=== PATIENT | male | born 1975 | race Caucasian/White ===

== ENCOUNTER 2018-12-19 10:25 | Emergency (ER) | payer OTHER ==
[~2018-12-19] VITALS: Ht 175.3 cm; Wt 93.6 kg
[~2018-12-19 10:25] MED LIST: ALBU0.0912 INH; HYDR-5122 PO; [UNRECOGNIZED DRUG - CODE] PO
[2018-12-19 11:03] VITALS: BP 165/119
--- NOTE | 2018-12-19 11:10 | NUR ---
Patient ambulated to bed 5 at this time.
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
[2018-12-19] MEDS ORDERED: KETOROLAC 60 MG/2 ML VIAL IM ONE (12:45)
--- NOTE | 2018-12-19 13:12 | NUR ---
medicated as written--will continue to observe for pain control
[2018-12-19 14:19] VITALS: BP 164/98
--- NOTE | 2018-12-19 14:19 | NUR ---
CT READ HANDED TO PT Patient discharged with v/s stable. Written and verbal after care instructions given and explained. Patient verbalized understanding. Ambulatory with steady gait. All questions addressed prior to discharge. Advised to follow up with PMD.
== END 2018-12-19 14:19 | disposition home or self-care (01) ==
LOC: MED 10:25
DX: S16.1XXA Strain of muscle, fascia and tendon at neck level, initial encounter (principal); M54.9 Dorsalgia, unspecified; I10 Essential (primary) hypertension; Z79.891 Long term (current) use of opiate analgesic; Z79.899 Other long term (current) drug therapy; V43.62XA Car passenger injured in collision with other type car in traffic accident, initial encounter; Y93.89 Activity, other specified; Y92.89 Other specified places as the place of occurrence of the external cause; Y99.8 Other external cause status
CPT/HCPCS: 72125; 96372; 99284; J1885